=== PATIENT | male | born 1975 | race Caucasian/White ===

== ENCOUNTER 2021-10-13 17:40 | Emergency (ER) | payer OTHER ==
[2021-10-13 17:57] VITALS: BP 147/92; PULSE 79; TEMP 98.1; BMI 49.8
[2021-10-13] MEDS ORDERED: KETOROLAC TROMETHAMINE 60 MG/2 ML VIAL IM ONE (18:28)
[2021-10-13] MEDS ORDERED: KETOROLAC TROMETHAMINE 60 MG/2 ML VIAL ONE (18:30)
== END 2021-10-13 18:40 | disposition home or self-care (01) ==
LOC: JERFT 17:40
PROC: 3E0233Z Introduction of Anti-inflammatory into Muscle, Percutaneous Approach (ICD-10-PCS; principal; 2021-10-13)
DX: S39.012A Strain of muscle, fascia and tendon of lower back, initial encounter (principal); S43.401A Unspecified sprain of right shoulder joint, initial encounter; W01.0XXA Fall on same level from slipping, tripping and stumbling without subsequent striking against object, initial encounter
CPT/HCPCS: 99284-25

== ENCOUNTER 2022-08-31 08:09 | Emergency (ER) | payer OTHER ==
[2022-08-31 08:40] VITALS: BP 143/88; PULSE 89; RESP 20; TEMP 98.2; BMI 50.1
[2022-08-31] MEDS ORDERED: ACETAMINOPHEN 325 MG TABLET (FP) PO ONE (09:41)
[2022-08-31] MEDS ORDERED: ALBUTEROL SO4 HFA INHALER IH ONE (09:51)
== END 2022-08-31 10:41 | disposition home or self-care (01) ==
LOC: JER 08:09
PROC: 3E0F7GC Introduction of Other Therapeutic Substance into Respiratory Tract, Via Natural or Artificial Opening (ICD-10-PCS; principal; 2022-08-31)
DX: J09.X2 Influenza due to identified novel influenza A virus with other respiratory manifestations (principal)
CPT/HCPCS: 0241U-QW; 71046-TC-FY; 99284-25